=== PATIENT | female | born 1995 | race Caucasian/White ===

== ENCOUNTER → 2017-10-09 | Outpatient (CLI) | payer OTHER ==
[~2017-10-09] MED LIST: AZIT250 PO; CEPH250A; CEPH500 PO; CYCL10 PO; IBUP600 PO; NAPR500 PO; Prednisone20 MG PO; QUET25 PO; VENL25
[2017-10-09 13:05] LABS: U Amphetamine Screen Not Detected; U Barbituate Screen Not Detected; U Benzodiazapine Screen DETECTED; U Buprenorphine Screen Not Detected; U Cannabinoids Screen Not Detected; U Cocaine Screen Not Detected; U Methadone Screen Not Detected; U Methamphetamine Screen Not Detected; U Opiates Screen Not Detected; U Oxycodone Screen Not Detected; U Phencyclidine Screen Not Detected; U Propoxyphene Screen Not Detected
== END ==
LOC: LAB 11:00 → LAB SHORT 11:00
PROVIDERS: Registered Nurse
DX: Z79.899 Other long term (current) drug therapy (principal)

== ENCOUNTER → 2019-02-17 | Outpatient (CLI) | payer OTHER ==
[2019-02-18 09:40] LABS: Candida species (DNA Probe) Negative (NEGATIVE); G. vaginalis (DNA Probe) Negative (NEGATIVE); T. vaginalis (DNA Probe) Negative (NEGATIVE)
== END | disposition home or self-care (01) ==
LOC: LAB SHORT 14:00 → LAB 14:00
PROVIDERS: Family Medicine
DX: N89.8 Other specified noninflammatory disorders of vagina (principal)
CPT/HCPCS: 87480; 87510; 87660

== ENCOUNTER 2020-11-10 19:51 | Emergency (ER) | payer OTHER ==
[~2020-11-10] VITALS: Ht 157.5 cm; Wt 72.6 kg
[2020-11-10 20:32] LABS: BASOPHILS ABSOLUTE AUTO 0.07 K/mm3 (0.00-0.23); BASOPHILS PERCENT AUTO 1 % (0-2); EOSINOPHILS ABSOLUTE AUTO 0.23 K/mm3 (0.00-0.68); EOSINOPHILS PERCENT AUTO 2 % (0-6); Hematocrit 40.3 % (33.0-51.0); Hemoglobin 13.4 g/dL (11.5-16.0); IMMATURE GRAN ABSOLUTE AUTO 0.05 K/mm3 (0.00-0.10); IMMATURE GRAN PERCENT AUTO 0 % (0-1); LYMPHOCYTES ABSOLUTE AUTO 3.21 K/mm3 (0.84-5.20); LYMPHOCYTES PERCENT AUTO 26 % (21-46); MONOCYTES ABSOLUTE AUTO 0.97 K/mm3 (0.16-1.47); MONOCYTES PERCENT AUTO 8 % (4-13); Mean Corpuscular HGB 29.1 pg (26.0-34.0); Mean Corpuscular HGB Conc 33.3 g/dL (31.5-36.5); Mean Corpuscular Volume 88 fL (80-100); Mean Platelet Volume 10.2 fL (9.1-12.4); NEUTROPHILS ABSOLUTE AUTO 7.94 K/mm3 (1.96-9.15); NEUTROPHILS PERCENT AUTO 64 % (41-73); Platelet Count 346 K/mm3 (150-400); RDW Coefficient Variation 13.2 % (11.7-14.2); RDW Standard Deviation 42.2 fL (35.1-46.3); White Blood Cell Count 12.47 K/mm3 (4.00-11.30)
[2020-11-10 20:52] LABS: Alanine Aminotransfer (ALT/SGP 19 U/L (12-78); Albumin, Blood 3.6 g/dL (3.4-5.0); Albumin/Globulin Ratio 1.1 (0.8-1.8); Alk Phos 64 U/L (50-136); Anion Gap 6 mmol/L (6-16); Aspartate Aminotrans (AST/SGOT 13 U/L (12-37); Blood Urea Nitrogen 7 mg/dL (8-24); Bun/Creatinine Ratio 10.6 (12.0-20.0); CO2, Blood 26 mmol/L (21-32); Chloride, Blood 108 mmol/L (98-108); Creatinine, Blood 0.66 mg/dL (0.40-1.00); Globulin, Blood 3.3 g/dL (2.2-4.0); Glomerular Filtration Rate >60 (60-); Glucose, Blood 73 mg/dL (70-99); Sodium, Blood 140 mmol/L (136-145); Total Protein, Blood 6.9 g/dL (6.4-8.2)
[2020-11-10 21:06] LABS: Source, Urine Clean Catch
[2020-11-10 21:08] LABS: Appearance, Urine Clear (Clear); Bilirubin, Urine Neg (Neg); Blood, Urine 3+ (Neg); Color, Urine Yellow (P-Yellow); Glucose Qualitative, Urine Neg (Neg); Ketones, Urine Neg (Neg); Leukocyte Esterase, Urine 1+ (Neg); Nitrite, Urine Neg (Neg); Protein, Urine 1+ (Neg); Specific Gravity, Urine 1.025 (1.003-1.022); Urobilinogen, Urine NORM (Normal)
[2020-11-10 21:17] LABS: Bacteria Mod /hpf; Mucus Light (0-Heavy); Red Blood Cells, Urine 0-2 /hpf (0-2); Squamous Epithelial Cells Few /hpf (Few)
[2020-11-10] MEDS ORDERED: Pyridium100 MG PO (23:07)
[2020-11-10] MEDS ORDERED: Macrobid 100 M100 MG PO (23:07)
== END 2020-11-10 23:13 | disposition home or self-care (01) ==
LOC: ER 19:51
PROVIDERS: Physician Assistant
DX: N39.0 Urinary tract infection, site not specified (principal); F17.200 Nicotine dependence, unspecified, uncomplicated; Z88.1 Allergy status to other antibiotic agents; Z88.0 Allergy status to penicillin
CPT/HCPCS: 36415; 51798; 80053; 81001; 84703; 85025; 87086; 96374; 99283-25; A9270; J2405

== ENCOUNTER 2021-11-26 15:54 | Inpatient (IN) | payer OTHER ==
[~2021-11-26] VITALS: Ht 157.5 cm; Wt 84.0 kg
[~2021-11-26 15:54] MED LIST changes: +Macrobid 100 M100 MG PO; +Pyridium100 MG PO
[2021-11-26 16:50] LABS: BASOPHILS ABSOLUTE AUTO 0.05 K/mm3 (0.00-0.23); BASOPHILS PERCENT AUTO 0 % (0-2); EOSINOPHILS ABSOLUTE AUTO 0.08 K/mm3 (0.00-0.68); EOSINOPHILS PERCENT AUTO 1 % (0-6); Hematocrit 37.6 % (33.0-51.0); Hemoglobin 12.4 g/dL (11.5-16.0); IMMATURE GRAN ABSOLUTE AUTO 0.18 K/mm3 (0.00-0.10); IMMATURE GRAN PERCENT AUTO 1 % (0-1); LYMPHOCYTES PERCENT AUTO 21 % (21-46); MONOCYTES ABSOLUTE AUTO 1.08 K/mm3 (0.16-1.47); MONOCYTES PERCENT AUTO 9 % (4-13); Mean Corpuscular HGB 28.5 pg (26.0-34.0); Mean Corpuscular Volume 86 fL (80-100); Mean Platelet Volume 10.1 fL (9.1-12.4); NEUTROPHILS ABSOLUTE AUTO 8.51 K/mm3 (1.96-9.15); NEUTROPHILS PERCENT AUTO 68 % (41-73); Platelet Count 346 K/mm3 (150-400); RDW Coefficient Variation 14.6 % (11.7-14.2); Red Blood Cell Count 4.35 M/mm3 (3.80-5.20)
[2021-11-26] MEDS ORDERED: LAMO100 PO (16:54)
[2021-11-28 06:14] LABS: Hematocrit 33.9 % (33.0-51.0); Hemoglobin 11.2 g/dL (11.5-16.0); Mean Corpuscular HGB 28.6 pg (26.0-34.0); Mean Corpuscular Volume 87 fL (80-100); Mean Platelet Volume 10.2 fL (9.1-12.4); Platelet Count 278 K/mm3 (150-400); RDW Coefficient Variation 14.6 % (11.7-14.2); Red Blood Cell Count 3.91 M/mm3 (3.80-5.20)
[2021-11-28] MEDS ORDERED: IBUP800 PO (09:57)
--- NOTE | 2021-11-28 14:28 | NUR ---
EPDS score Pt EPDS score 10, with 1/3 on question #10. Provider aware and no psych social worker available in house currently. Pt is currently in care of mental health provider who prescribes her medication for bipolar disorder. OB provider encouraged pt to notify mental health provider that she is now delivered for close follow up as needed post . Post depression education provided and pamphelt given. Pt verbalized understanding.
--- NOTE | 2021-11-28 15:05 | NUR ---
Report to Pino Melton RN
--- NOTE | 2021-11-28 16:34 | NUR ---
PATIENT REPORTS THAT SHE IS NOT CURRENTLY EXPERIENCING DEPRESSION, ANXIETY, OR SUICIDAL IDEATION. SHE IS SCHEDULED WITH DR. ARTHUR, HER PCP WHO MANAGES HER PSYCH MEDICATIONS. SHE IS ALSO SCHEDULED WITH SEBASTIAN KWONG FOR A FOLLOW-UP ON 12/11/2021 AT 1500. WE DISCUSSED PPD IN DEPTH DURING DISCHARGE INSTRUCTIONS. SHE WAS ALSO GIVEN A PAMPLET AND BOOKLET WITH STRATEGIES AND RESOURCES.
== END 2021-11-28 17:10 | disposition home or self-care (01) | DRG 807 ==
LOC: BC 15:54 → OBS 15:54 → BC 16:11
PROVIDERS: ADMIT Nurse Practitioner Obstetrics & Gynecology
PROC: 10E0XZZ Delivery of Products of Conception, External Approach (ICD-10-PCS; principal; 2021-11-27)
PROC: 3E0P7VZ Introduction of Hormone into Female Reproductive, Via Natural or Artificial Opening (ICD-10-PCS; 2021-11-27)
PROC: 3E033VJ Introduction of Other Hormone into Peripheral Vein, Percutaneous Approach (ICD-10-PCS; 2021-11-27)
PROC: 00HU33Z Insertion of Infusion Device into Spinal Canal, Percutaneous Approach (ICD-10-PCS; 2021-11-27)
PROC: 3E0R3BZ Introduction of Anesthetic Agent into Spinal Canal, Percutaneous Approach (ICD-10-PCS; 2021-11-27)
PROC: 10907ZC Drainage of Amniotic Fluid, Therapeutic from Products of Conception, Via Natural or Artificial Opening (ICD-10-PCS; 2021-11-27)
DX: O48.0 Post-term pregnancy (principal); Z37.0 Single live birth; O99.344 Other mental disorders complicating childbirth; O70.0 First degree perineal laceration during delivery; F32.A Depression, unspecified; Z3A.40 40 weeks gestation of pregnancy; Z88.0 Allergy status to penicillin; Z88.1 Allergy status to other antibiotic agents; Z67.40 Type O blood, Rh positive; Z87.891 Personal history of nicotine dependence
CPT/HCPCS: 36415; 51702; 85025; 85027; 86850; 86900; 86901; A9270; J1885; J2001; J2210; J2405; J2590; J3010; J7120

== ENCOUNTER → 2021-12-31 | Outpatient (CLI) | payer OTHER ==
[~2021-12-31] MED LIST changes: +IBUP800 PO; +LAMO100 PO
== END ==
LOC: LAB 16:45 → LAB SHORT 16:45
DX: R82.90 Unspecified abnormal findings in urine (principal); N39.0 Urinary tract infection, site not specified
CPT/HCPCS: 87086

== ENCOUNTER → 2022-04-16 | Outpatient (CLI) | payer OTHER ==
[2022-04-16 17:38] LABS: Appearance, Urine Clear (Clear); Bilirubin, Urine Neg (Neg); Blood, Urine 1+ (Neg); Color, Urine Yellow (P-Yellow); Glucose Qualitative, Urine Neg (Neg); Ketones, Urine Neg (Neg); Leukocyte Esterase, Urine Neg (Neg); Nitrite, Urine Neg (Neg); Protein, Urine Neg (Neg); Specific Gravity, Urine 1.015 (1.003-1.022); Urobilinogen, Urine NORM (Normal); pH, Urine 6.5 (5.0-8.0)
[2022-04-16 17:45] LABS: Bacteria Rare /hpf; Squamous Epithelial Cells Rare /hpf (Few); White Blood Cells, Urine 0-2 /hpf (0-5)
== END | disposition home or self-care (01) ==
LOC: LAB 13:40 → LAB SHORT 13:40
PROVIDERS: Family Medicine
DX: N39.0 Urinary tract infection, site not specified (principal)
CPT/HCPCS: 81001; 87086

== ENCOUNTER 2022-04-23 20:23 | Emergency (ER) | payer OTHER ==
[~2022-04-23] VITALS: Ht 160 cm; Wt 80.4 kg
[2022-04-23 21:32] LABS: Influenza A, PCR NEGATIVE (NEGATIVE); Influenza B, PCR NEGATIVE (NEGATIVE); Resp Syncytial Virus, PCR NEGATIVE (NEGATIVE); SARS-Cov-2 (COVID-19) PCR, MMC NEGATIVE (NEGATIVE)
== END 2022-04-23 22:07 | disposition home or self-care (01) ==
LOC: ER 20:23
PROVIDERS: Physician Assistant
DX: J06.9 Acute upper respiratory infection, unspecified (principal); F17.210 Nicotine dependence, cigarettes, uncomplicated; Z20.822 Contact with and (suspected) exposure to COVID-19; Z88.0 Allergy status to penicillin; Z88.1 Allergy status to other antibiotic agents; Z79.899 Other long term (current) drug therapy
CPT/HCPCS: 0241U; A9270

== ENCOUNTER 2024-02-14 19:10 | Inpatient (IN) | payer OTHER ==
[~2024-02-14] VITALS: Ht 157.5 cm; Wt 88.6 kg
[2024-02-14] VITALS (7 sets, daily range): BP systolic 110–126; BP diastolic 61–85
[~2024-02-14 19:10] MED LIST changes: +Oxytocin 10 Unit / ML Vial IV ONE
[2024-02-14] MEDS ORDERED: FentaNYL Citrate 50 MCG/ML 2 ML Injection IV PRN (19:20)
[2024-02-14] MEDS ORDERED: Ondansetron HCl 2 MG / ML 2ML Vial IV PRN (19:25)
[2024-02-14] MEDS ORDERED: Oxytocin 10 Unit / ML Vial IM PRN (19:25)
[2024-02-14] MEDS ORDERED: Lactated Ringer's 1,000 ML IV SCH ×3 (19:25→19:30)
[2024-02-14] MEDS ORDERED: Misoprostol 200 MCG Tab PR PRN (19:25)
[2024-02-14] MEDS ORDERED: OXYTOCIN/RINGER'S LACTATE 500 ML IV PRN (19:25)
[2024-02-14] MEDS ORDERED: Misoprostol 200 MCG Tab BC PRN (19:25)
[2024-02-14] MEDS ORDERED: Acetaminophen 500 MG Tab PO PRN (19:25)
[2024-02-14] MEDS ORDERED: ePHEDrine Sulfate 50 MG/ML 1ML Injection XX PRN (19:25)
[2024-02-14] MEDS ORDERED: FentaNYL 2mcg/ml-Bup 0.1% Epd 250 ML EPI PRN (19:25)
[2024-02-14] MEDS ORDERED: Methylergonovine Maleate 0.2MG / ML 1ML Amp IM PRN (19:25)
[2024-02-14] MEDS ORDERED: Carboprost Tromethamine 250 MCG/ML 1ML Amp IM PRN (19:25)
[2024-02-14] MEDS ORDERED: Calcium Carbonate 500 MG Tab Chew PO PRN ×2 (19:30→20:30)
[2024-02-14] MEDS ORDERED: Tranexamic Acid 100 ML IV PRN (19:40)
[2024-02-14 19:57] LABS: BASOPHILS ABSOLUTE AUTO 0.04 K/mm3 (0.00-0.23); BASOPHILS PERCENT AUTO 0 % (0-2); EOSINOPHILS PERCENT AUTO 1 % (0-6); Hematocrit 34.2 % (33.0-51.0); Hemoglobin 11.2 g/dL (11.5-16.0); IMMATURE GRAN ABSOLUTE AUTO 0.23 K/mm3 (0.00-0.10); IMMATURE GRAN PERCENT AUTO 2 % (0-1); LYMPHOCYTES ABSOLUTE AUTO 2.53 K/mm3 (0.84-5.20); LYMPHOCYTES PERCENT AUTO 19 % (21-46); MONOCYTES PERCENT AUTO 9 % (4-13); Mean Corpuscular HGB 26.2 pg (26.0-34.0); Mean Corpuscular HGB Conc 32.7 g/dL (31.5-36.5); Mean Corpuscular Volume 80 fL (80-100); NEUTROPHILS ABSOLUTE AUTO 9.12 K/mm3 (1.96-9.15); NEUTROPHILS PERCENT AUTO 69 % (41-73); Platelet Count 328 K/mm3 (150-400); RDW Standard Deviation 43.3 fL (35.1-46.3); Red Blood Cell Count 4.28 M/mm3 (3.80-5.20); White Blood Cell Count 13.22 K/mm3 (4.00-11.30)
[2024-02-14] MEDS ORDERED: Misoprostol 25 MCG Tab VAG SCH (20:00)
[2024-02-14] MEDS ORDERED: PRENATAL TABLE1 EAC2 PO (20:07)
[2024-02-14] MEDS ORDERED: SERT50 PO (20:08)
[2024-02-14] MEDS ORDERED: Zolpidem Tartrate 5 MG Tab PO PRN (20:25)
[2024-02-14] MEDS ORDERED: DiphenhydrAMINE HCl 50 MG Cap PO PRN (20:25)
[2024-02-14] MEDS ORDERED: Sertraline HCl 50 MG Tab PO SCH (21:00)
[2024-02-15] VITALS (37 sets, daily range): BP systolic 88–148; BP diastolic 50–78
[2024-02-15] MEDS ORDERED: OxyCODONE 5 mg/Acetamin 325 mg TABLET PO PRN (10:25)
[2024-02-15] MEDS ORDERED: OXYTOCIN/RINGER'S LACTATE 500 ML IV SCH (10:30)
[2024-02-15] MEDS ORDERED: Witch Hazel/Glycerin PADS TOP PRN (10:30)
[2024-02-15] MEDS ORDERED: Oxytocin 10 Unit / ML Vial IM ONE (10:30)
[2024-02-15] MEDS ORDERED: Acetaminophen 325 MG TABLET PO PRN (10:30)
[2024-02-15] MEDS ORDERED: FLU VACC TS2024-25(6MOS UP)/PF 45 MCG/0.5 ML SYRINGE IM SCH (10:30)
[2024-02-15] MEDS ORDERED: Methylergonovine Maleate 0.2MG / ML 1ML Amp IM PRN (10:30)
[2024-02-15] MEDS ORDERED: Misoprostol 200 MCG Tab PR PRN (10:30)
[2024-02-15] MEDS ORDERED: Lactated Ringer's 1,000 ML IV SCH (10:30)
[2024-02-15] MEDS ORDERED: Ibuprofen 400 MG Tab PO PRN (10:35)
[2024-02-15] MEDS ORDERED: Benzocaine Topical Anesthetic Spray 60GM TOP PRN (10:35)
[2024-02-15] MEDS ORDERED: Docusate Sodium 100 MG Cap PO PRN (10:35)
[2024-02-15] MEDS ORDERED: Diphth,Pertuss(Acell),Tet Vac 0.5 ML VIAL IM ONE (10:35)
[2024-02-15] MEDS ORDERED: Ketorolac Tromethamine 30mg Vial IV PRN (10:35)
--- NOTE | 2024-02-15 19:31 | NUR ---
RAMIRES REMOVED BY PREVIOUS SHIFT
[2024-02-16 04:05] VITALS: BP 100/66
[2024-02-16 06:10] LABS: Hematocrit 32.3 % (33.0-51.0); Hemoglobin 10.4 g/dL (11.5-16.0); Mean Corpuscular HGB 26.3 pg (26.0-34.0); Mean Corpuscular HGB Conc 32.2 g/dL (31.5-36.5); Mean Corpuscular Volume 82 fL (80-100); Mean Platelet Volume 10.1 fL (9.1-12.4); Platelet Count 259 K/mm3 (150-400); RDW Coefficient Variation 15.1 % (11.7-14.2); RDW Standard Deviation 45.1 fL (35.1-46.3); Red Blood Cell Count 3.96 M/mm3 (3.80-5.20); White Blood Cell Count 11.39 K/mm3 (4.00-11.30)
[2024-02-16 08:10] VITALS: BP 110/55
[2024-02-16] MEDS ORDERED: Prenatal Vit/FE Fumarate/FA 1 Tab PO SCH (09:00)
--- NOTE | 2024-02-16 10:33 | NUR ---
Printed d/c instructions reviewed by pt after CNM in room for discharge. Pt denies additional teaching/instructions. Pt notified of SW consult coming prior to discharge. Reports she has hx of anxiety/depression and currently sees therapist but is also open to SW consult.
[2024-02-16] MEDS ORDERED: IBUP800 PO (11:01)
[2024-02-16] MEDS ORDERED: DOCU100 PO (11:03)
[2024-02-16] MEDS ORDERED: TUCKS1 EACH TOP (11:04)
[2024-02-16] MEDS ORDERED: MASOPHEN325 M3 PO (11:05)
[2024-02-16 12:37] VITALS: BP 108/69
--- NOTE | 2024-02-16 13:08 | NUR ---
No acute changes this shift. ID bands matched w/nb and verification form. Verbalized understanding of follow up. Denies additional questions/needs. Social work consult done. Pt d/c'd home ambulatory to care of .
== END 2024-02-16 12:50 | disposition home or self-care (01) | DRG 807 ==
LOC: OBS 19:10 → BC 19:12 → OBS 19:18 → BC 19:18
PROVIDERS: Family Medicine; ADMIT Advanced Practice Midwife
PROC: 10E0XZZ Delivery of Products of Conception, External Approach (ICD-10-PCS; principal; 2024-02-15)
PROC: 3E0R3BZ Introduction of Anesthetic Agent into Spinal Canal, Percutaneous Approach (ICD-10-PCS; 2024-02-15)
PROC: 00HU33Z Insertion of Infusion Device into Spinal Canal, Percutaneous Approach (ICD-10-PCS; 2024-02-15)
DX: O99.344 Other mental disorders complicating childbirth (principal); Z37.0 Single live birth; Z3A.39 39 weeks gestation of pregnancy; F32.A Depression, unspecified; F41.9 Anxiety disorder, unspecified; O99.334 Smoking (tobacco) complicating childbirth; F17.290 Nicotine dependence, other tobacco product, uncomplicated; O69.81X0 Labor and delivery complicated by cord around neck, without compression, not applicable or unspecified; O71.89 Other specified obstetric trauma; O99.214 Obesity complicating childbirth
CPT/HCPCS: 36415; 51702; 85025; 85027; 86850; 86900; 86901; 96372; A9270; J1885; J2405; J2590; J3010; J7120

== ENCOUNTER → 2024-02-19 | Outpatient (CLI) | payer OTHER ==
[~2024-02-19] MED LIST changes: +DOCU100 PO; +MASOPHEN325 M3 PO; -Oxytocin 10 Unit / ML Vial IV ONE; +PRENATAL TABLE1 EAC2 PO; +SERT50 PO; +TUCKS1 EACH TOP
== END | disposition home or self-care (01) ==
LOC: LAB 16:59 → LAB SHORT 16:59
DX: R30.0 Dysuria (principal); R10.30 Lower abdominal pain, unspecified
CPT/HCPCS: 87086

== ENCOUNTER 2025-01-06 18:17 | Emergency (ER) | payer OTHER ==
[~2025-01-06] VITALS: Ht 157.5 cm; Wt 87.5 kg
[2025-01-06] MEDS ORDERED: Ondansetron HCl 2 MG / ML 2ML Vial IV ONE (18:25)
[2025-01-06 19:31] LABS: BASOPHILS ABSOLUTE AUTO 0.08 K/mm3 (0.00-0.23); BASOPHILS PERCENT AUTO 1 % (0-2); EOSINOPHILS ABSOLUTE AUTO 0.20 K/mm3 (0.00-0.68); EOSINOPHILS PERCENT AUTO 2 % (0-6); Hematocrit 40.8 % (33.0-51.0); Hemoglobin 13.0 g/dL (11.5-16.0); IMMATURE GRAN ABSOLUTE AUTO 0.06 K/mm3 (0.00-0.10); IMMATURE GRAN PERCENT AUTO 0 % (0-1); LYMPHOCYTES ABSOLUTE AUTO 3.06 K/mm3 (0.84-5.20); LYMPHOCYTES PERCENT AUTO 23 % (21-46); MONOCYTES ABSOLUTE AUTO 0.97 K/mm3 (0.16-1.47); MONOCYTES PERCENT AUTO 7 % (4-13); Mean Corpuscular HGB Conc 31.9 g/dL (31.5-36.5); Mean Corpuscular Volume 83 fL (80-100); NEUTROPHILS ABSOLUTE AUTO 8.98 K/mm3 (1.96-9.15); NEUTROPHILS PERCENT AUTO 67 % (41-73); NRBC ABSOLUTE 0.00 K/mm3 (0.00-0.02); NRBC Auto 0.0 /100 WBC (0.0-0.2); Platelet Count 345 K/mm3 (150-400); RDW Coefficient Variation 13.8 % (11.7-14.2); RDW Standard Deviation 42.1 fL (35.1-46.3)
[2025-01-06 19:59] LABS: Alanine Aminotransfer (ALT/SGP 17.0 U/L (12-78); Albumin, Blood 3.8 g/dL (3.4-5.0); Albumin/Globulin Ratio 1.0 (0.8-1.8); Anion Gap 5.0 mmol/L (3-11); Aspartate Aminotrans (AST/SGOT 11.0 U/L (12-37); Bilirubin, Total 0.5 mg/dL (0.1-1.0); Blood Urea Nitrogen 10.0 mg/dL (8-24); CO2, Blood 27.0 mmol/L (21-32); Calcium, Blood 9.0 mg/dL (8.5-10.1); Chloride, Blood 107.0 mmol/L (98-108); Creatinine, Blood 0.63 mg/dL (0.40-1.00); Globulin, Blood 3.9 g/dL (2.2-4.0); Glucose, Blood 127.0 mg/dL (70-99); Potassium, Blood 3.4 mmol/L (3.5-5.5); Sodium, Blood 136.0 mmol/L (136-145); Total Protein, Blood 7.7 g/dL (6.4-8.2)
[2025-01-06 22:00] VITALS: BP 118/59
== END 2025-01-06 22:09 | disposition home or self-care (01) ==
LOC: ER 18:17
PROVIDERS: Student in an Organized Health Care Education/Training Program
DX: R55 Syncope and collapse (principal); Z88.0 Allergy status to penicillin; Z88.1 Allergy status to other antibiotic agents; Z79.899 Other long term (current) drug therapy; F17.210 Nicotine dependence, cigarettes, uncomplicated
CPT/HCPCS: 76830; 76856; 80053; 84703; 85025; 93005; 93010; 99284-25; J2405